=== PATIENT | female | born 1945 | race Caucasian/White ===

== ENCOUNTER 2018-09-12 15:04 | Outpatient (CLI) | payer MEDICARE ==
--- NOTE | 2018-09-12 15:45 | Mammography Report ---
Bilateral mammogram: No previous studies available for CAD study utilized. Findings: Predominance of adipose tissue bilaterally. Benign calcifications. Focal oval asymmetry posterior upper left breast adjacent to the chest wall. 3 mm circumscribed asymmetry outer mid left breast and anterior outer right breast. Normal axilla. Impression: Focal asymmetry is as described. Comparison with previous studies recommended. If previous studies are not available Spot compression and if necessary sonographic examination advised. BI-RADS CATEGORY: 0 = Needs additional imaging evaluation ACR BI-RADS MAMMOGRAPHIC CODES: 0 = Needs additional imaging evaluation; 1 = Negative; 2 = Benign; 3 = Probably benign; 4 = Suspicious; 5 = Malignant; 6 = Known biopsy-proven malignancy COMMENT: 1. Dense breast tissue, i.e., adenosis, fibrocystic changes, etc., may obscure an underlying neoplasm. 2. Approximately 10% of cancers are not detected with mammography. 3. A negative mammography report should not delay biopsy if a clinically suspicious mass is present. COMMENT: Patient follow-up letters are generated in [employer].
== END 2018-09-12 15:05 | disposition home or self-care (01) ==
LOC: SPVWC 15:04
PROVIDERS: ATTEND Family Medicine
DX: Z12.31 Encounter for screening mammogram for malignant neoplasm of breast (principal)
CPT/HCPCS: 77067